=== PATIENT | female | born 2000 ===

== ENCOUNTER 2022-05-13 16:34 | Inpatient (IN) ==
[2022-05-13] MEDS ORDERED: miSOPROStoL 200 MCG TABLET RECTAL PRN (17:17)
[2022-05-13] MEDS ORDERED: METHYLERGONOVINE 0.2 MG/1 ML AMP IM PRN (17:17)
[2022-05-13] MEDS ORDERED: OXYTOCIN/LR 20 UNIT/1,000 ML BAG IV ONE (17:17)
[2022-05-13] MEDS ORDERED: ONDANSETRON 4 MG/2 ML VIAL IV PRN (17:17)
[2022-05-13] MEDS ORDERED: TRANEXAMIC ACID 1,000 MG in SODIUM CHLORIDE 0.9% 100 ML IV PRN (17:17)
[2022-05-13] MEDS ORDERED: BUTORPHANOL 2 MG/ML VIAL IV PRN (17:17)
[2022-05-13] MEDS ORDERED: CARBOPROST TROMETHAMINE 250 MCG/ML AMP IM PRN (17:17)
[2022-05-13] MEDS ORDERED: MEPERIDINE 50 MG/1 ML VIAL IV PRN (17:17)
[2022-05-13] MEDS ORDERED: LACTATED RINGERS 1,000 ML IV SCH ×3 (17:30→20:30)
[2022-05-13] MEDS ORDERED: AMPICILLIN INJ 2,000 MG in SODIUM CHLORIDE 0.9% 100 ML IV ONE (17:37)
[2022-05-13 17:41] LABS: Basophils % 0.3 % (0.0-0.8); Eosinophils % 0.2 % (0.00-10.9); Hematocrit 38.9 VOL% (35.7-47.0); Hemoglobin 13.2 GM/DL (12.0-16.0); Immature Granulocytes % 0.3 %; Immature Granulocytes Absolute 0.03 #; Lymphocytes # 1.8 10*3/uL (1.4-4.0); Lymphocytes % 18.3 % (21.3-54.2); Mean Corpuscular HGB Conc 33.9 GM/DL (32-36); Mean Corpuscular Volume 90.9 FL (87-102); Mean Platelet Volume 10.4 FL (9.6-12.0); Monocytes # 0.6 10*3/uL (0.11-0.8); Monocytes % 6.1 % (1.7-12.7); Neutrophils % 74.8 % (38.7-73.9); Platelet Count 254 T/CUMM (130-400); Red Blood Count 4.28 MC/CUMM (3.8-5.5); Red Cell Distribution Width 13.3 % (9.3-17.3); White Blood Count 9.8 T/CUMM (4-12)
[2022-05-13 17:59] LABS: Albumin 2.7 G/DL (3.4-5.0); Bilirubin,Total 0.4 MG/DL (0.20-1.00); Calcium 9.2 MG/DL (8.5-10.1); Potassium 3.7 MMOL/L (3.5-5.1); Total Protein 7.4 G/DL (6.4-8.2)
[2022-05-13] MEDS ORDERED: LACTATED RINGERS 250 ML IV PRN (20:01)
[2022-05-13] MEDS ORDERED: ePHEDrine 50 MG/ML VIAL IV PRN (20:01)
[2022-05-13] MEDS ORDERED: PROMETHAZINE 25 MG/1 ML VIAL IM ONE (20:01)
[2022-05-13] MEDS ORDERED: NALOXONE 0.4 MG/ML VIAL IV PRN (20:01)
[2022-05-13] MEDS ORDERED: diphenhydrAMINE 50 MG/1 ML VIAL IV PRN ×2 (20:01)
[2022-05-13] MEDS ORDERED: hydrOXYzine HCL 25 MG/1 ML VIAL IM PRN (20:01)
[2022-05-13] MEDS ORDERED: ONDANSETRON 4 MG/2 ML VIAL IV ONE (20:01)
[2022-05-13] MEDS ORDERED: CITRIC ACID/SODIUM CITRATE 30 ML UDCUP PO ONE (20:04)
[2022-05-13] MEDS ORDERED: LACTATED RINGERS 1,000 ML IV ONE (20:04)
[2022-05-13] MEDS ORDERED: LACTATED RINGERS 500 ML IV ONE (20:04)
[2022-05-13] MEDS ORDERED: FAMOTIDINE 20 MG/2 ML VIAL IV ONE (20:04)
[2022-05-13] MEDS ORDERED: fentaNYL 2 MCG/ROPIV 0.2% EPID 100 ML EPIDURAL SCH (20:30)
[2022-05-13] MEDS ORDERED: AMPICILLIN INJ 1,000 MG in SODIUM CHLORIDE 0.9% 100 ML IV SCH (22:00)
[2022-05-13 23:17] LABS: Mucus,Urine Few /LPF (Occasional); RBC,Urine 10 /HPF (0-4); Squamous Epithelial Cell,Urine Occasional /HPF (0-10)
[2022-05-13 23:18] LABS: Bilirubin,Urine Negative (Negative); Blood, Urine Trace mg/dL (Negative); Glucose,Urine (UA) Negative (Negative); Ketones,Urine >=160 mg/dL (Negative); Nitrite,Urine Negative (Negative); Protein,Urine 30 mg/dL (Negative); Urine Appearance Clear (Clear); Urine Color Yellow (Yellow); Urine Specific Gravity 1.025 (1.001-1.035); Urine Urobilinogen 0.2 eU/dL (<2.0)
[2022-05-14] MEDS ORDERED: TERBUTALINE 1 MG/1 ML VIAL ONE (00:35)
[2022-05-14] MEDS ORDERED: TERBUTALINE 1 MG/1 ML VIAL SUBCUT ONE (01:00)
[2022-05-14] MEDS: TERBUTALINE 1 MG/1 ML VIAL SUBCUT PRN ×2 (01:14→02:43)
[2022-05-14] MEDS ORDERED: TRANEXAMIC ACID 1,000 MG in SODIUM CHLORIDE 0.9% 100 ML IV PRN ×2 (03:05→03:30)
[2022-05-14] MEDS ORDERED: OXYTOCIN 10 UNIT/ML VIAL ONE (03:25)
[2022-05-14] MEDS ORDERED: ceFAZolin 2,000 MG/50 ML DUPLEX IV ONE (03:30)
[2022-05-14] MEDS ORDERED: OXYTOCIN/LR 30 UNIT/1,000 ML BAG IV ONE (03:30)
[2022-05-14] MEDS ORDERED: LIDOCAINE MPF 2% /EPI 20 ML VIAL ONE (03:32)
[2022-05-14] MEDS ORDERED: ONDANSETRON 4 MG/2 ML VIAL ONE (03:32)
[2022-05-14] MEDS ORDERED: buprenorphine HCL 0.3 MG/ML VIAL ONE (03:32)
[2022-05-14] MEDS ORDERED: OXYTOCIN/LR 20 UNIT/1,000 ML BAG IV SCH (04:00)
[2022-05-14] MEDS ORDERED: KETOROLAC 30 MG/1 ML VIAL ONE (04:06)
[2022-05-14] MEDS ORDERED: PROMETHAZINE 25 MG/1 ML VIAL ONE (04:06)
[2022-05-14 04:18] LABS: Cord Venous Blood HCO3 19.4 MMOL/L; Cord Venous Blood PO2 24.7
[2022-05-14] MEDS ORDERED: SIMETHICONE CHEW 80 MG TABLET PO PRN (04:31)
[2022-05-14] MEDS ORDERED: ACETAMINOPHEN 325 MG TABLET PO PRN (04:31)
[2022-05-14] MEDS ORDERED: ONDANSETRON 4 MG/2 ML VIAL IV PRN (04:31)
[2022-05-14] MEDS ORDERED: OXYTOCIN/LR 20 UNIT/1,000 ML BAG IV ONE (04:31)
[2022-05-14] MEDS ORDERED: HYDROmorphone 1 MG/1 ML SYRINGE IV PRN (04:36)
[2022-05-14] MEDS ORDERED: LACTATED RINGERS 1,000 ML IV SCH (05:00)
[2022-05-14] MEDS ORDERED: RHO(D) IMMUNE GLOBULIN 300 MCG SYRINGE IM ONE (05:00)
[2022-05-14] MEDS: MICONAZOLE 2% CREAM 57 GM TUBE TOP SCH (06:11)
[2022-05-14] MEDS: KETOROLAC 30 MG/1 ML VIAL IV SCH ×2 (09:29→15:51)
[2022-05-14] MEDS ORDERED: KETOROLAC 30 MG/1 ML VIAL IV SCH (10:30)
[2022-05-14] MEDS: DOCUSATE SODIUM 100 MG CAPSULE PO SCH (10:30)
[2022-05-14] MEDS: MULTIVITAMIN (PRENATAL) TABLET PO SCH (10:31)
[2022-05-14] MEDS: ACETAMINOPHEN 500 MG TABLET PO SCH ×2 (10:34→18:35)
[2022-05-14] MEDS: ceFAZolin 2,000 MG/50 ML DUPLEX IV SCH ×2 (10:52→18:38)
[2022-05-14 10:55] LABS: Basophils % 0.2 % (0.0-0.8); Hematocrit 31.9 VOL% (35.7-47.0); Hemoglobin 10.7 GM/DL (12.0-16.0); Immature Granulocytes % 0.5 %; Immature Granulocytes Absolute 0.07 #; Lymphocytes # 1.9 10*3/uL (1.4-4.0); Lymphocytes % 12.4 % (21.3-54.2); Mean Corpuscular HGB Conc 33.5 GM/DL (32-36); Mean Corpuscular Volume 91.9 FL (87-102); Mean Platelet Volume 10.4 FL (9.6-12.0); Monocytes % 6.3 % (1.7-12.7); Neutrophils % 80.6 % (38.7-73.9); Platelet Count 219 T/CUMM (130-400); Red Blood Count 3.47 MC/CUMM (3.8-5.5); Red Cell Distribution Width 13.4 % (9.3-17.3); White Blood Count 15.5 T/CUMM (4-12)
[2022-05-15] MEDS: DOCUSATE SODIUM 100 MG CAPSULE PO SCH ×3 (00:27→21:06)
[2022-05-15] MEDS: ACETAMINOPHEN 500 MG TABLET PO SCH (01:08)
[2022-05-15 06:29] LABS: Basophils % 0.2 % (0.0-0.8); Eosinophils # 0.1 10*3/uL (0.0-0.87); Eosinophils % 0.9 % (0.00-10.9); Hematocrit 31.3 VOL% (35.7-47.0); Hemoglobin 10.3 GM/DL (12.0-16.0); Immature Granulocytes % 0.4 %; Immature Granulocytes Absolute 0.05 #; Lymphocytes % 16.7 % (21.3-54.2); Mean Corpuscular HGB Conc 32.9 GM/DL (32-36); Mean Corpuscular Volume 94.3 FL (87-102); Mean Platelet Volume 10.6 FL (9.6-12.0); Monocytes # 0.7 10*3/uL (0.11-0.8); Monocytes % 5.8 % (1.7-12.7); Platelet Count 205 T/CUMM (130-400); Red Blood Count 3.32 MC/CUMM (3.8-5.5); Red Cell Distribution Width 13.9 % (9.3-17.3); White Blood Count 12.2 T/CUMM (4-12)
[2022-05-15] MEDS: MAGNESIUM HYDROXIDE SUSP 30 ML UDCUP PO PRN ×2 (08:42→21:06)
[2022-05-15] MEDS: MULTIVITAMIN (PRENATAL) TABLET PO SCH (08:42)
[2022-05-15] MEDS: METOCLOPRAMIDE 10 MG TABLET PO SCH ×2 (08:42→16:00)
[2022-05-16] MEDS: METOCLOPRAMIDE 10 MG TABLET PO SCH ×2 (00:21→08:30)
[2022-05-16] MEDS: IBUPROFEN 800 MG TABLET PO PRN ×3 (00:25→22:22)
[2022-05-16] MEDS: DOCUSATE SODIUM 100 MG CAPSULE PO SCH ×2 (09:38→22:22)
[2022-05-16] MEDS: MULTIVITAMIN (PRENATAL) TABLET PO SCH (09:38)
[2022-05-16] MEDS: MICONAZOLE 2% CREAM 57 GM TUBE TOP SCH ×2 (09:40→22:23)
[2022-05-17] MEDS: MULTIVITAMIN (PRENATAL) TABLET PO SCH (09:28)
[2022-05-17] MEDS: DOCUSATE SODIUM 100 MG CAPSULE PO SCH (09:28)
[2022-05-17] MEDS: MICONAZOLE 2% CREAM 57 GM TUBE TOP SCH (09:28)
[2022-05-17 14:25] VITALS: BP 117/76
== END 2022-05-17 12:10 | disposition home or self-care (01) | DRG 540 ==
LOC: N.LDOUT 16:34 → N.LD 16:38 → N.OB 05-14 08:14
PROVIDERS: ADMIT Obstetrics & Gynecology; ATTEND Obstetrics & Gynecology
PROC: LDCSECT (ICD-10-PCS; 2022-05-14 03:30)